=== PATIENT | male | born 1935 | race African-American/Black ===

== ENCOUNTER 2023-07-18 13:12 | Emergency (ER) | payer BC, MEDICARE ==
[~2023-07-18] VITALS: Ht 177.8 cm; Wt 68.0 kg
[~2023-07-18 13:12] MED LIST: ASPI-1073 PO
[2023-07-18 13:27] VITALS: O2SAT 99
[2023-07-18 14:01] LABS: EOSINOPHILS % 4.6 % (0.0-5.0); HEMATOCRIT. 35.7 % (42.0-52.0); HEMOGLOBIN. 11.7 g/dL (14.0-18.0); LYMPHOCYTES % 17.3 % (20.0-50.0); MEAN CORPUSCULAR HEMOGLOBIN 27.2 pg (28.0-32.0); MEAN CORPUSCULAR HGB CONC 32.8 g/dL (31.0-37.0); MEAN CORPUSCULAR VOLUME 82.9 fL (80.0-94.0); MEAN PLATELET VOLUME 9.1 fl (7.4-10.4); MONOCYTES % 12.3 % (2.0-8.0); NEUTROPHILS % 64.8 % (40.0-76.0); PLATELET 143 x1000/uL (130-400); RED BLOOD CELL COUNT 4.31 mill/uL (4.7-6.1); RED CELL DISTRIBUTION WIDTH 16.1 % (11.6-14.6); WHITE BLOOD COUNT 4.2 x1000/uL (4.5-11.0)
[2023-07-18 14:16] LABS: CHLORIDE 111 mEq/L (98-107); POTASSIUM 4.8 mEq/L (3.5-5.1); SODIUM 141 mEq/L (136-145)
[2023-07-18 14:17] LABS: CALCIUM 8.8 mg/dL (8.7-10.4); CARBON DIOXIDE 23 mEq/L (21-32)
[2023-07-18 14:22] LABS: CREATININE 1.8 mg/dL (0.6-1.3); GLUCOSE 84 mg/dL (70-105); PARTIAL THROMBOPLASTIN TIME 26.8 sec (23.4-31.0); PROTHROMBIN TIME 11.4 sec (9.6-11.0); UREA NITROGEN BLOOD 29 mg/dL (9-23)
[2023-07-18 14:24] LABS: ALANINE AMINOTRANSFERASE 9 IU/L (10-49); ALBUMIN 4.1 g/dL (3.2-4.8); ASPARTATE AMINOTRANSFERASE 23 IU/L (<34)
[2023-07-18 14:25] LABS: BILIRUBIN TOTAL 0.3 mg/dL (0.1-1.0); PROTEIN TOTAL 7.1 g/dL (6.0-8.3)
[2023-07-18 16:07] LABS: CLARITY URINE TURBID (CLEAR); COLOR URINE ORANGE (YELLOW); GLUCOSE URINE NEGATIVE (NEGATIVE); KETONES URINE NEGATIVE (NEGATIVE); LEUKOCYTE ESTERASE URINE TRACE (NEGATIVE); NITRITE URINE NEGATIVE (NEGATIVE); OCCULT BLOOD URINE 3+ (NEGATIVE); PROTEIN URINE 2+ (NEGATIVE); SPECIFIC GRAVITY URINE 1.022 (1.005-1.030)
[2023-07-18 16:25] LABS: BACTERIA URINE NONE SEEN; RBC URINE 15-25 /hpf (0-2); SQUAMOUS EPITHELIAL CELL URINE 1+ /lpf (RARE/1+)
[2023-07-18] MEDS: SODIUM CHLORIDE 0.9% 1,000 ML IV ONE (16:43)
[2023-07-18] MEDS: LIDOCAINE HCL 2% JELLY 5ML TOP ONE (16:44)
[2023-07-18 17:45] VITALS: BP 142/66; PULSE 69; RESP 18; TEMP 98.3
== END 2023-07-18 17:53 | disposition home or self-care (01) ==
LOC: ER 13:12
DX: R31.9 Hematuria, unspecified (principal); E78.00 Pure hypercholesterolemia, unspecified; I10 Essential (primary) hypertension
CPT/HCPCS: 99284; 74176; 96360; 80053; 81003; 83690; 85025; 85610; 85730; 86850; 86900; 86901; 36415; J7030